=== PATIENT | male | born 1960 | race Caucasian/White ===

== ENCOUNTER → 2017-01-06 | Outpatient (CLI) | payer OTHER ==
[~2017-01-06] MED LIST: ALLOPURINOL 30300 M2 PO; FENOFIBRATE PO; FLECAINIDE ACET50 M1 PO; LISINOPRIL10 MG PO; METOPROLOL TART25 MG PO; OMEPRAZOLE20 M1 PO; PRADAXA150 MG PO
[2017-01-06 08:10] LABS: HEMATOCRIT 43.5 % (42.0-52.0); HEMOGLOBIN 14.9 gm/dL (14.0-18.0); MCH 33.3 pg (26.0-34.0); MCHC 34.2 g/dL (28.0-37.0); MCV 97.2 fL (80.0-100.0); RBC 4.48 mil/uL (4.50-6.00); RDW 12.8 % (10.5-14.5); WBC 4.8 thou/uL (4.0-11.0)
[2017-01-06 08:22] LABS: CALCIUM 9.5 mg/dL (8.5-10.1); CREATININE 1.2 mg/dL (0.7-1.3); POTASSIUM 4.6 mmol/L (3.5-5.1)
[2017-01-06 08:28] LABS: ALBUMIN 4.1 g/dL (3.4-5.0); TOTAL BILIRUBIN 0.8 mg/dL (<0.1-1.0)
== END ==
LOC: LABMALL 07:35
PROVIDERS: Internal Medicine Cardiovascular Disease
DX: I25.10 Atherosclerotic heart disease of native coronary artery without angina pectoris (principal); I48.91 Unspecified atrial fibrillation

== ENCOUNTER 2017-12-15 06:51 | Observation (INO) | payer OTHER ==
[~2017-12-15] VITALS: Ht 177.8 cm; Wt 88.5 kg
--- NOTE | ~2017-12-15 | P ---
[facility] [place] [address] PROCEDURE REPORT Name: COLTON CARTER Kamari Room #: 200-I [facility]..#: [id number] Admission: 12/15/17 Attend Phys: Uli Boogie MD Discharge: Date of : 62 Report #: [id number] THIS REPORT FOR: //name// CC: Lorin Boogie DATE OF SERVICE: 12/15/2017 PREOPERATIVE DIAGNOSES: 1. Atrial fibrillation. 2. 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 4. Left atrial roof dependent flutter. PROCEDURES PERFORMED: 1. Atrial fibrillation ablation, CPT code 37975. 2. 3D mapping EP, CPT code 70222. 3. Intracardiac echo, CPT code 20637. 4. Focal ablation of mitral annular flutter, CPT code 97150. 5. Focal ablation of roofline flutter, CPT code 01041. 6. Focal ablation of typical atrial flutter, CPT code 19631. ANESTHESIA: The patient underwent general anesthesia with no anesthesia related complications. DESCRIPTION OF PROCEDURE: The patient underwent informed consent. We discussed the details of the procedure including the risks, which include, but not limited to, bleeding, vascular damage, cardiac perforation as well as stroke or [place]. The patient understood these risks and is willing to proceed. The patient was brought to the EP laboratory in a fasting and unsedated state and prepped and draped in a sterile fashion. Next, I obtained access in the bilateral femoral veins. I injected lidocaine bilaterally and placed an 8 and 6-Dutch short sheath in the right femoral vein and a 7-Dutch and 9-Dutch short sheath in the left femoral vein. Under fluoroscopy, I placed a decapolar catheter in the coronary sinus. Of note, maintenance of the decapolar in the coronary sinus was quite challenging. It would come out and would often go into a ventricular branch, so during the initial portion of the ablation, I left it in the right atrium, but later when it appeared that he was having flutter, I was able to finally get this into the CS proper. I placed an ice catheter in the right atrium and created a 3-D geometry of the left atrium with specific emphasis of the 2 left pulmonary veins, the 2 right pulmonary veins and the left atrial appendage. Next, the patient was systemically heparinized and I performed 2 transseptals using SL1 sheaths and a [place] needle. Both transseptals were straightforward. I then placed a Lasso catheter into the left atrium and created a detailed voltage map of the left atrium. There was [address] [address] PROCEDURE REPORT Name: RAUL,COLTON Kamari Room #: 200-I [facility] Raymundo M.R.#: [id number] Admission: 12/15/17 Attend Phys: Uli Boogie MD Discharge: Date of : 62 Report #: [id number] evidence that the left inferior pulmonary vein was reconnected along the posterior daryn. The right superior pulmonary vein was also reconnected and this reconnection was in the anterior aspect of the daryn. The other 2 vessels remained isolated. Prior to ablation, the patient was in atrial fibrillation with a ventricular cycle length of 975 milliseconds, QRS duration of 65 milliseconds and QT interval of 355 milliseconds. Next, using a [employer] ablation catheter, I re-isolated the left inferior pulmonary vein along the posterior daryn and extended this down to under the left inferior pulmonary vein. I re-interrogated the left superior pulmonary vein. This was clearly isolated. I then turned my attention to the right superior pulmonary vein and performed ablation along the anterior carinal region of the vessel. Prior to ablating this region, I performed pacing from the ablation catheter and there was no phrenic nerve capture. This also isolated quite easily. Post ablation, based on the surface electrogram, it appeared that the patient was in atrial flutter. We therefore mapped this atrial flutter. This initial map demonstrated the patient had a roof dependent atrial flutter. I initially tried to entrain from the coronary sinus and this was clearly very long, but when we performed entrainment from the posterior roof region, The PPI minus tachycardia cycle length was 4 milliseconds and this correlated well with the activation sequence we were seeing on our activation map. Therefore, I performed ablation along the roof region at around 25-30 shipley and stayed away from the esophagus. I performed ablation at this site and then the flutter appeared to transition. Atrial flutter #1 had a very vertical activation along the coronary sinus catheter with a tachycardia cycle length of 190 milliseconds. Atrial flutter #2 had more of a distal to proximal activation along the CS. The tachycardia cycle length was 210 milliseconds and now when I performed entrainment from CS 1, 2, the PPI minus tachycardia cycle length was 0; therefore, I started creating a mitral flutter line below the left inferior pulmonary vein and created several lines in this region with no change in the activation or any slowing of the atrial flutter. It appeared that I had done a good job of eliminating the signals throughout this region posterior and anterior to the left inferior pulmonary vein. Therefore, we decided to tackle this from the coronary sinus. Therefore, I pulled my ablation catheter into the right atrium. I removed the catheter from the SL1 sheath and went into the coronary sinus via an 8-Dutch short sheath. I had difficulty getting my ablation catheter into the coronary sinus with the CS catheter in place. Therefore, I removed this and placed in the right atrium. I therefore entered the CS and was eventually able to get into the CS proper and get out of the ventricular branch. I then performed 2 drag lesions along the roof of the coronary sinus. The first drag lesion did not appear to change the flutter cycle length. The second one, I was able to get better contact along the roof of the coronary sinus and continued dragging until I was into the proximal aspect of the CS. At this point, you could see that there had been a change in the cycle length of the tachycardia as well as the activation pattern. Therefore, I removed the ablation catheter from the CS and placed the decapolar back into the coronary sinus and there was clearly now a block along the coronary sinus as there was no longer proximal to distal [facility] [address] [place] [address] PROCEDURE REPORT Name: RAULCOLTON Kamari Room #: 200-I [facility] Raymundo Burkett#: [id number] Admission: 12/15/17 Attend Phys: Uli Boogie MD Discharge: Date of : 62 Report #: [id number] activation and there was activation in sequence now consistent with mitral annular block. I therefore tried to entrain this flutter again from CS 1, 2 and CS 9, 10 and it was very long. Therefore, I placed my ablation catheter along the tricuspid annulus and the PPI minus tachycardia cycle length was around 30 milliseconds. Ablation of typical atrial flutter: Next, I opened up a ramp sheath and placed my ablation catheter in the sheath and performed ablation at 6 o'clock along the tricuspid annulus. Second, I performed a continuous drag lesion at 40 shipley and as I came to the posterior line, there was slowing of the flutter and an acute termination. Post ablation, there was evidence of bidirectional block across the tricuspid annulus as evidenced by double potentials of 140-145 milliseconds. As such, the patient was now in sinus rhythm with a sinus cycle length of 755 milliseconds, MD interval 190 milliseconds, QRS duration 90 milliseconds, QT interval 390 milliseconds. As such, the procedure was concluded. All catheters and sheaths were pulled. Hemostasis was obtained and the patient awoke neurologically and hemodynamically intact with no complications. No significant bleeding. CONCLUSIONS: 1. Successful atrial fibrillation ablation with re-isolation of the left inferior pulmonary vein and the right superior pulmonary vein. 2. Successful ablation of a roof dependent atrial flutter with evidence of block across the roof. 3. Successful mitral annular flutter ablation with evidence of bidirectional block along the coronary sinus post ablation. 4. Successful ablation of typical atrial flutter with evidence of bidirectional block across the tricuspid annulus. By: 1500 50 Uli Boogie MD /nt
--- NOTE | ~2017-12-15 | EKG ---
[address] [address] ELECTROCARDIOGRAM REPORT Name: COLTON CARTER Kamari Room #: 200-I [facility]#: [id number] Admission: 12/15/17 Attend Phys: Uli Boogie MD Discharge: Date of : 62 Report #: [id number] THIS REPORT FOR: //name// [facility] Test Date: 2017-12-15 Test Time: 07:18:32 Pat Name: COLTON CARTER Department: Room: 200 Gender: M Dog Trainer: ZOLTAN : 1960 Requested By: Uli Boogie Order Number: [id number] MD: Uli Boogie Measurements Intervals [place] Rate: 89 P: SC: QRS: -28 QRSD: 86 T: 8 QT: 374 QTc: 456 Interpretive Statements Atrial fibrillation Borderline left axis deviation Borderline low voltage, extremity leads Probable anteroseptal infarct, old Compared to ECG 04/30/2016 12:30:08 Electronically Signed On 12-15-2017 17:46:27 CDT by Uli Boogie [email or web address] <ELECTRONICALLY SIGNED> By: Uli Boogie MD 12/15/17 1746 7 7 Uli Boogie MD /EPI
--- NOTE | ~2017-12-15 | D ---
[facility] [place] [address] DISCHARGE SUMMARY Name: COLTON CARTER Room #: 200-I [facility]..#: [id number] Admission: 12/15/17 Attend Phys: Uli Boogie MD Discharge: Date of : 62 Report #: [id number] THIS REPORT FOR: //name// CC: Lorin Boogie DISCHARGE DIAGNOSES: 1. Atrial fibrillation. 2. Typical atrial flutter. 3. Mitral annular flutter. 4. Roof dependent flutter. HISTORY: The patient was here for elective repeat AFib ablation after having clinical recurrence. He underwent successful ablation today with re-isolation of the right superior and left inferior pulmonary veins as well as ablation of a roof dependent flutter, a mitral annular flutter and a tricuspid annulus dependent flutter. The procedure was without complications. HOSPITAL COURSE: The patient was monitored overnight and had no issues on telemetry. He remained in sinus rhythm. The following day, he denied any chest pain, shortness of breath, fevers or chills. On physical exam, heart was regular rate and rhythm with no murmurs, rubs or gallops. Lungs were clear to auscultation bilaterally and his bilateral groin showed no hematoma or bruising. As such, he was deemed stable for discharge home and he will go home on his Xarelto, flecainide therapy and beta blockers. He will follow up with me in 3 months. By: 0824 Uli Boogie MD /negin
--- NOTE | ~2017-12-15 | H ---
[facility] [place] [address] HISTORY AND PHYSICAL Name: COLTON CARTER Room #: 200-I [facility]..#: [id number] Admission: 12/15/17 Attend Phys: Uli Boogie MD Discharge: 12/16/17 Date of : 62 Report #: [id number] THIS REPORT FOR: //name// CC: Lorin Boogie DATE OF SERVICE: 12/15/2017 REASON FOR HOSPITALIZATION: AFib. HISTORY OF PRESENT ILLNESS: The patient is a 57-year-old male with history of paroxysmal AFib, hypertension, hyperlipidemia, gout, tobacco and alcohol use, who has had recurrent AFib and is here for repeat ablation. REVIEW OF SYSTEMS: A 12-point review of systems was performed and was negative, other than what I mentioned above. PAST MEDICAL HISTORY: As above. SOCIAL HISTORY: Does not smoke, does drink. Works in [employer]. FAMILY HISTORY: Noncontributory. ALLERGIES: None. MEDICATIONS: Have been reviewed. PHYSICAL EXAMINATION: VITAL SIGNS: Stable. GENERAL: No acute distress. CARDIOVASCULAR: Regular rate and rhythm. LUNGS: Clear to auscultation bilaterally. ABDOMEN: Soft, nontender, nondistended. EXTREMITIES: No clubbing, cyanosis, edema. ASSESSMENT: Atrial fibrillation. PLAN: The patient will proceed with repeat AFib ablation. Risks, benefits have been previously documented. DICTATION ENDS HERE. By: 1352 1421 Uli Boogie, /negin
[~2017-12-15 06:51] MED LIST changes: +TOPROL XL25 MG PO
[2017-12-15 07:11] VITALS: BP 120/83
[2017-12-15] MEDS ORDERED: XARELTO20 MG PO (07:21)
[2017-12-15] MEDS ORDERED: LIPITOR 20 MG T20 M1 PO (07:25)
[2017-12-15 07:33] LABS: ABSOLUTE NEUTROPHILS 2.7 thou/uL (1.4-8.2); BASOPHILS 0.7 % (0.0-2.0); EOSINOPHILS 1.2 % (0.0-3.0); HEMATOCRIT 45.5 % (42.0-52.0); HEMOGLOBIN 15.4 gm/dL (14.0-18.0); LYMPHOCYTES 32.4 % (24.0-44.0); MCH 33.1 pg (26.0-34.0); MCHC 33.8 g/dL (28.0-37.0); MCV 97.9 fL (80.0-100.0); MONOCYTES 11.4 % (1.0-8.0); PLATELET COUNT 175 thou/uL (150-400); POLYS 54.3 % (36.0-66.0); RBC 4.65 mil/uL (4.50-6.00); RDW 13.5 % (10.5-14.5); WBC 5.1 thou/uL (4.0-11.0)
[2017-12-15 07:36] LABS: CALCIUM 9.1 mg/dL (8.5-10.1); CREATININE 1.2 mg/dL (0.7-1.3); POTASSIUM 4.3 mmol/L (3.5-5.1)
[2017-12-15 07:41] LABS: ALBUMIN 3.6 g/dL (3.4-5.0); APTT 28.2 Seconds (24.5-32.8); PROTIME 10.2 Seconds (9.3-11.4); TOTAL BILIRUBIN 0.6 mg/dL (<0.1-1.0)
[2017-12-15 15:30] VITALS: BP 111/71
[2017-12-15 17:22] VITALS: BP 106/74
[2017-12-15 18:29] VITALS: BP 113/77
[2017-12-15 19:55] VITALS: BP 119/75
[2017-12-16 00:18] VITALS: BP 129/85
[2017-12-16 04:50] VITALS: BP 112/74
[2017-12-16 07:25] VITALS: BP 121/85
[2017-12-16 10:02] VITALS: BP 121/85
== END 2017-12-16 10:36 | disposition home or self-care (01) ==
LOC: CATH 06:51 → 2N 15:33 → ENTRNSPT 12-16 10:15 → EDTRNSPTSTS 12-16 10:17 → 2N 12-16 10:36
PROVIDERS: Internal Medicine Cardiovascular Disease
DX: I48.91 Unspecified atrial fibrillation (principal); I48.3 Typical atrial flutter
CPT/HCPCS: 62110; 62900; 65020; 65040; 70005